=== PATIENT | female | born 1990 | race Caucasian/White ===

== ENCOUNTER → 2016-11-17 | Outpatient (CLI) | payer OTHER ==
[~2016-11-17] MED LIST: PERCOCET 5/321 UDTAB PO; WAL-PROFEN200 M2 PO; XARELTO10 MG PO
--- NOTE | ~2016-11-17 | EKG ---
PATIENT: BRENDA LUNA UNIT #: [id number] Ventricular Rate: 98 BPM Atrial Rate: 98 BPM P-R Interval: 128 ms QRS Duration: 76 ms Q-T Interval: 342 ms QTC Calculation(Bezet): 436 ms P Mystic: 70 degrees Calculated R Mystic: 72 degrees Calculated T Mystic: 37 degrees Diagnosis Line: Normal sinus rhythm Diagnosis Line: Normal ECG Diagnosis Line: No previous ECGs available Diagnosis Line: Confirmed by GERSON GIORDANO MD ([id number]) on Diagnosis Line: 11/18/2016 11:23:50 AM INTERPRETING MD: GIULIANA GEORGE
== END | disposition home or self-care (01) ==
LOC: CAMB 10:20
DX: Z01.810 Encounter for preprocedural cardiovascular examination (principal); Q66.89 Other specified congenital deformities of feet; M21.612 Bunion of left foot
CPT/HCPCS: 93005

== ENCOUNTER 2016-12-01 10:21 | Inpatient (IN) | payer OTHER ==
--- NOTE | ~2016-12-01 | DS ---
Unit #: [id number] #: [id number] Patient: BRENDA LUNA [id number] [address] [place], [place] [address] [id number] I MR#: [id number] NAME: BRENDA LUNA ROOM: 456 Age: 26 Sex: F Admission Date: 12/01/2016 : 1990 Discharge Date: 12/03/2016 Attending Physician: Sri Marcial M.D. Primary Care Physician: Maxwell López M.D. DISCHARGE SUMMARY ADMITTING DIAGNOSES 1. 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 2. Left first metatarsal elevatus. DISCHARGE DIAGNOSES 1. 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 2. Left first metatarsal elevatus. PROCEDURES PERFORMED 1. Left foot triple arthrodesis. 2. Left anterior tibial tendon transfer to intermediate cuneiform. 3. Left first tarsometatarsal joint fusion. 4. Left proximal tibial bone graft. HOSPITAL COURSE This patient is a 26-year-old white female. She had undergone a previous clubfoot correction and had an overcorrected clubfoot with heel valgus and pes abducto plano valgus. The patient had elevatus of her first metatarsal secondary to an overactive anterior tibial tendon. The patient had attempted conservative care prior to surgery and she no longer considered again for further bracing. Therefore, she underwent a left foot triple arthrodesis, transfer of the anterior tibial tendon, and fusion of the first tarsometatarsal joint. The proximal tibial bone graft was also taken. There were no further pertinent physical or lab data from this hospital stay. On 12/01/2016, the patient was admitted to the hospital for the above-mentioned surgery. Since her surgery on 12/01/2016, she has overall done well in the hospital. On postop day #1, her pain was well controlled. She was alert and oriented and in no acute distress. Her dressings are clean, dry, intact and her sensation in her left lower extremity was intact. We discussed using ice and elevation. She was also to use a knee scooter in order to ambulate. She worked with physical therapy as well on postop day #1. By postop day #2, again the patient was doing well. She did report significant pain in her left foot throughout the night. She denied any calf pain or tenderness. No fever, sweats, or chills. She felt comfortable with being discharged home today. On postop day #2, all her vitals were stable. Her left lower extremity, she was able to move her toes up and down, she was neurovascularly intact, she denied calf pain. She had sensation to her toes and normal capillary refill, therefore on postop day #2, the patient was okay to discharge home. She is to remain nonweightbearing to her left lower extremity and use her knee scooter for ambulation. The patient to keep the splint in Unit #: [id number] #: [id number] Patient: BRENDA LUNA and not to change her dressing until followup visit with Dr. Marcial in his office in 10 to 14 days. She was told to return to clinic sooner if any questions or signs of infection present. CONDITION AT DISCHARGE The patient was stable and doing well. She is to go home today. DISCHARGE MEDICATIONS She is to come off all hospital medications and she may continue her ibuprofen capsule 200 mg p.o. every 4 hours as needed for pain. She was also given a script for Xarelto 10 mg to take one tablet p.o. once daily for DVT prophylaxis, dispensed #12 with no refills. Another prescription for Percocet 5/325 to take 1 to 2 tablets p.o. every 6 hours p.r.n. pain, dispensed #40 with no refills. The patient may return to a normal diet. DISCHARGE INSTRUCTIONS AND FOLLOWUP Again, we would like for the patient to remain nonweightbearing to her left lower extremity and to use the knee scooter for ambulation. She is to keep splint in place and not to change her dressing until her followup visit with Dr. Marcial in his office in 10 to 14 days. The patient to return to clinic sooner if any concerns or signs of infection present. She is to use Xarelto daily for 12 days and she was also given a prescription for Percocet for pain control. The patient is to call the office for further questions or concerns prior to office visit. Dictated by... Suzi Gamboa PA-C for Sri Marcial M.D. HEAVEN/deepthi TD: 12/04/2016 01:30 JOB #: [id number] DISCHARGE SUMMARY Page 1 of 1 X X DISCHARGE SUMMARY
--- NOTE | ~2016-12-01 | OR ---
Unit #: [id number] #: [id number] Patient: BRENDA LUNA [id number] [address] [place], [place] [address] [id number] MR#: [id number] NAME: BRENDA LUNA ROOM: 456 Date of Procedure: 12/01/2016 Admission Date: 12/01/2016 Surgeon: Sri Marcial M.D. : 1990 Attending Physician: Sri Marcial M.D. Primary Care Physician: Maxwell López M.D. OPERATIVE REPORT PREOPERATIVE DIAGNOSES 1. Left pes abducto valgus foot deformity secondary to overcorrected clubfoot. 2. Left first metatarsal elevatus. POSTOPERATIVE DIAGNOSES 1. Left pes abducto valgus foot deformity secondary to overcorrected clubfoot. 2. Left first metatarsal elevatus. PROCEDURES PERFORMED 1. Left foot triple arthrodesis (24596). 2. Left anterior tibial tendon transfer to intermediate cuneiform (37320). 3. Left first tarsometatarsal joint fusion (87486). 4. Left proximal tibial bone graft (53618). ASSISTANTS Ayse and Kristie. ANESTHESIA General and popliteal saphenous block. INDICATIONS FOR SURGERY The patient is a 26-year-old female, who has undergone previous clubfoot correction and now has an overcorrected clubfoot with marked heel valgus and pes abducto planovalgus. She has elevatus of the first metatarsal secondary to overactivity of the anterior tibial tendon. The patient has failed conservative care and is not a candidate for further bracing as she has failed all attempts at bracing and orthotic management. She is therefore to undergo a left foot triple arthrodesis, transfer of the anterior tibial tendon more proximally to decrease first metatarsal elevatus, fusion of the first tarsometatarsal joint. We will utilize proximal tibial bone graft. DESCRIPTION OF PROCEDURE The patient was taken to the operating room. Following popliteal saphenous block to the left leg, she was placed in a supine position. General anesthetic was induced. The left foot was prepped and draped in usual sterile fashion. The leg was exsanguinated and the thigh tourniquet was inflated to 300 mmHg. A time-out procedure was performed identifying the left foot as correct operative extremity and the IV antibiotic protocol was followed. Unit #: [id number] #: [id number] Patient: BRENDA LUNA A longitudinal incision was made over the sinus tarsi ending at the fourth metatarsal base. Subcutaneous tissue was carefully divided. The sinus tarsi was opened and the contents of the sinus tarsi were excised. The joint was distracted with a laminar supervisor mattress and boxsprings. The power osteotome, curved curettes, and rongeurs were utilized to remove the articular cartilage from both sides of the subtalar joint. The underlying subchondral bone was feathered with the power osteotome. The calcaneocuboid joint was then exposed with subperiosteal dissection. The joint was distracted with a laminar supervisor mattress and boxsprings. The power osteotome, curved curettes, and rongeurs were utilized to remove the articular cartilage from both sides of the calcaneocuboid joint. The underlying subchondral bone was feathered with the power osteotome. A medial longitudinal incision was made over the talonavicular joint extending to the first metatarsal base. Subcutaneous tissue was divided. The anterior tibial tendon was released from the first metatarsal base and tagged with a 2-0 Vicryl. The talonavicular joint was then exposed with subperiosteal dissection. The joint was distracted with a laminar supervisor mattress and boxsprings. The power osteotome, rongeurs, and curved curettes were utilized to remove the articular cartilage from both sides of the talonavicular joint. The underlying subchondral bone was feathered with the power osteotome. A 5 cm anterolateral longitudinal incision was made over the proximal lateral tibia directly over Gerdy tubercle. The subcutaneous tissue was divided. The extensor fascia was opened and the lateral proximal tibial cortex was exposed subperiosteally. A 1 x 2 cm cortical window was made with the power osteotome and a large amount of cancellous autogenous graft was harvested and packed into all three joints. The subtalar joint was then reduced by inverting and internally rotating the calcaneus. The subtalar joint was then fixated with an OrthoHelix 7.0 mm diameter cannulated screw placed from the posterior inferior calcaneus into the talar neck. The talonavicular joint was then reduced and fixated with an OrthoHelix 5.5 mm diameter cannulated screw placed from distal to proximal. The calcaneocuboid joint was then reduced and fixated with a 5.5 mm diameter cannulated OrthoHelix screw placed from distal to proximal. The first tarsometatarsal joint was then exposed subperiosteally. The microsagittal saw and pituitary rongeurs were utilized to remove the articular cartilage from both sides of the first tarsometatarsal joint. The underlying subchondral bone was drilled multiple times with a K-wire. The joint was then positioned appropriately and fixated with two crossed OrthoHelix 4.0 mm diameter cannulated screws. A 5 mm diameter OrthoHelix suture anchor was then placed in the dorsal aspect of the lateral cuneiform. The two attached #2 FiberWire sutures were used to repair the anterior tibial tendon back down to the midfoot. Excellent repair was achieved. Intraoperative C-arm fluoroscopy documented excellent correction of the foot deformity. Clinically, the foot was rectus with a neutral heel and rectus forefoot. Tourniquet was released with a total tourniquet time of 1 hour 50 minutes. Bleeding was controlled with electrocautery. The wounds were copiously irrigated. The proximal tibial donor site was packed with Gelfoam. The cortical window was replaced. The muscle fascia was closed meticulously with 2-0 Vicryl [id number] sutures. Unit #: [id number] #: [id number] Patient: BRENDA LUNA Subcutaneous tissue was closed with 3-0 Vicryl. Skin was closed with 3-0 nylon horizontal mattress sutures. Xeroform gauze, dressing, sponges, Webril, and a posterior fiberglass splint were applied. The patient was then transported to the recovery room in stable condition. ESTIMATED BLOOD LOSS Minimal. COMPLICATIONS None. SPECIMENS None. TOURNIQUET TIME 1 hour 50 minutes. Dictated by.Donovan Mcgrath/deepthi TD: 12/02/2016 06:09 JOB #: [id number] OPERATIVE REPORT Page 1 of 1 X Ashwin Marcial MD X PROCEDURE OPERATIVE NOTE
--- NOTE | ~2016-12-01 | DS ---
Unit #: [id number] #: [id number] Patient: BRENDA HAMILTON [id number] [address] [place], [place] [address] [id number] I MR#: [id number] NAME: BRENDA HAMILTON ROOM: 456 Age: 26 Sex: F Admission Date: 12/01/2016 : 1990 Discharge Date: 12/03/2016 Attending Physician: Sri Marcial M.D. Primary Care Physician: Maxwell López M.D. DISCHARGE SUMMARY ADMITTING DIAGNOSES 1. 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 2. Left first metatarsal elevatus. DISCHARGE DIAGNOSES 1. 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 2. Left first metatarsal elevatus. PROCEDURES PERFORMED 1. Left foot triple arthrodesis. 2. Left anterior tibial tendon transfer to intermediate cuneiform. 3. Left first tarsometatarsal joint fusion. 4. Left proximal tibial bone graft. HOSPITAL COURSE Ms. Hamilton is a 26-year-old white female, who previously underwent clubfoot correction with resultant overcorrected clubfoot, heel valgus, and pes abductoplanovalgus. The patient also exhibited elevatus of her first metatarsal secondary to an overactive anterior tibial tendon. Previously, the patient attempted conservative care and she is no longer considered a candidate for further bracing. Therefore, she underwent a left foot triple arthrodesis, transfer of the anterior tibial tendon, and fusion of the first tarsometatarsal joint. Proximal tibial bone graft was also taken. On 12/01/2016, the patient was admitted to the hospital for the above-mentioned surgery. Since her surgery on 12/01/2016, she has overall done well in the hospital. On postop day 1, her pain was well controlled. She was alert and oriented and in no acute distress. Her dressings remained clean, dry, and intact. An appropriate sensation in her left lower extremity was present. During her hospital stay, she used ice and elevated her left lower extremity to assist with pain control. We also discussed using a knee scooter for ambulation. She walked with physical therapy as well on postop day 1. By postop day 2, again the patient was doing well. She did report significant pain in her left foot throughout the night. She denied any calf pain or tenderness. No fever, sweats, or chills. On postop day 2, all her vitals were stable. She was able to move her left toes up and down, and she was neurovascularly intact. She had sensation to her toes and normal capillary refill of the left foot. Therefore, on postop day 2, the patient was stable to be discharged home. She is to remain nonweightbearing to her left lower extremity and use her knee scooter for ambulation. The patient is to keep Unit #: [id number] #: [id number] Patient: BRENDA HAMILTON the splint in place and is not to change her dressings until her followup visit with Dr. Marcial in his office in 10 to 14 days. She was told to return to clinic sooner if any questions or signs of infection present. CONDITION AT DISCHARGE The patient is stable and doing well. She is to go home today. DISCHARGE MEDICATIONS She is to come off all hospital medications and she may continue her ibuprofen capsule 200 mg p.o. every 4 hours as needed for pain. She was also given a script for Xarelto 10 mg to take one tablet p.o. once daily for DVT prophylaxis, dispensed 12 with no refills. Another prescription for Percocet 5/325, to take 1 to 2 tablets p.o. every 6 hours p.r.n. pain, we dispensed 40 tablets with no refills. DISCHARGE DIET The patient may return to a normal diet. DISCHARGE INSTRUCTIONS AND FOLLOWUP Again, we would like for the patient to remain nonweightbearing to her left lower extremity and to use the knee scooter for ambulation. She is to keep her splint in place and is not to change her dressing until her followup visit with Dr. Marcial in his office in 10 to 14 days. The patient is to return to clinic sooner if any questions or signs of infection present. She is to use Xarelto daily for 12 days, and she was also given a prescription for Percocet for pain control. The patient is to call the office for further questions or concerns prior to her office visit. Dictated by... Suzi Gamboa PA-C for Sri Marcial M.D. HEAVEN/deepthi TD: 12/05/2016 02:20 JOB #: [id number] DISCHARGE SUMMARY Page 1 of 1 X SUZI GAMBOA DISCHARGE SUMMARY
--- NOTE | ~2016-12-01 | HP ---
Unit #: [id number] #: [id number] Patient: BRENDA LUNA [id number] [facility]. [place], [place] [address] [id number] I MR#: [id number] NAME: BRENDA LUNA ROOM: 456 Age: Sex: F Admission Date: 12/01/2016 : 1990 Attending Physician: Sri Marcial M.D. Primary Care Physician: Maxwell López M.D. HISTORY AND PHYSICAL CHIEF COMPLAINT Left foot pain and deformity. HISTORY OF PRESENT ILLNESS The patient is a 26-year-old female who underwent bilateral clubfoot correction at age 1. She now has a painful deformity of both feet, the left worse than the right. Exam and CT scan document overcorrection of her clubfoot deformity with significant valgus deformity and impingement of the calcaneus against the fibula. The patient is, therefore, admitted for left foot reconstruction. PAST MEDICAL HISTORY Unremarkable. CURRENT MEDICATIONS None. PAST SURGICAL HISTORY Bilateral clubfoot correction, age 1. ALLERGIES Latex. SOCIAL HISTORY The patient is a smoker. She drinks alcohol socially. She denies recreational drug use. PHYSICAL EXAMINATION GENERAL: This is a well-developed, well-nourished female in no acute distress. HEENT: Pharynx is clear. NECK: The neck is supple without masses. HEART: Heart exam reveals a regular sinus rhythm without murmurs or gallops. LUNGS: The lungs are clear. ABDOMEN: The abdomen is soft and nontender without masses or organomegaly. EXTREMITIES: Evaluation of the left foot demonstrates pes planus deformity with forefoot abduction and heel valgus of 30 degrees. Pulses are palpable. Sensation is normal. Motor exam is normal. DIAGNOSTIC STUDIES IMAGING: Standing x-rays of the left foot show an increased talocalcaneal AP angle, Meary's angle of about -30 degrees, medial cuneiform height of Unit #: [id number] #: [id number] Patient: BRENDA LUNA -10 mm and calcaneal pitch of 10 degrees. The patient has superimposition of the talus on the calcaneus. Standing ankle x-rays show no evidence of tibiotalar valgus. The patient also has elevatus of the first ray with a dorsal bunion and hypermobility of the first tarsometatarsal joint. ADMITTING DIAGNOSIS Overcorrected left clubfoot with pes abducto planovalgus deformity and first ray elevatus. PLAN The patient is admitted for left foot triple arthrodesis, first tarsometatarsal joint arthrodesis, proximal anterior tibial tendon transfer and proximal tibial bone graft. This procedure was described in detail, along with the risks of bleeding, infection, nerve damage, the need for further surgery in the future, prolonged recovery time, deep venous thrombosis, pulmonary embolism, anesthetic complications, nonunion, malunion. She understands the above risks and agrees to proceed. After complete healing of the left foot, will proceed with the right foot. Dictated by Donovan Fregoso/ryan TD: 11/30/2016 09:44 JOB #: [id number] HISTORY AND PHYSICAL Page 1 of 1 X Ashwin Marcial MD X HISTORY AND PHYSICAL
[~2016-12-01 10:21] MED LIST changes: -PERCOCET 5/321 UDTAB PO; -XARELTO10 MG PO
[2016-12-03] MEDS ORDERED: XARELTO10 MG PO (09:03)
[2016-12-03] MEDS ORDERED: PERCOCET 5/321 UDTAB PO (09:03)
== END 2016-12-03 14:40 | disposition home or self-care (01) | DRG 494 ==
LOC: CSUR 10:21 → CPACUOF 17:41 → C4B 19:25
PROVIDERS: Orthopaedic Surgery
PROC: 0LXT0ZZ Transfer Left Ankle Tendon, Open Approach (ICD-10-PCS; 2016-12-01)
PROC: 0SGL04Z Fusion of Left Tarsometatarsal Joint with Internal Fixation Device, Open Approach (ICD-10-PCS; 2016-12-01)
PROC: 0QR Lower Bones, Replacement (ICD-10-PCS; 2016-12-01)
PROC: 0SGJ04Z Fusion of Left Tarsal Joint with Internal Fixation Device, Open Approach (ICD-10-PCS; principal; 2016-12-01 12:30)
PROC: 0QBH0ZZ Excision of Left Tibia, Open Approach (ICD-10-PCS; 2016-12-01 12:30)
PROC: 0SGJ04Z Fusion of Left Tarsal Joint with Internal Fixation Device, Open Approach (ICD-10-PCS; 2016-12-01 12:30)
PROC: 0SGJ04Z Fusion of Left Tarsal Joint with Internal Fixation Device, Open Approach (ICD-10-PCS; 2016-12-01 12:30)
DX: M21.072 Valgus deformity, not elsewhere classified, left ankle (principal); F17.210 Nicotine dependence, cigarettes, uncomplicated; M20.5X2 Other deformities of toe(s) (acquired), left foot; Z91.040 Latex allergy status
CPT/HCPCS: 84703; 97116; 97161; 97530; C1713; J0690; J2250; J2270; J2405; J2765